=== PATIENT | female | born 1945 | race Caucasian/White ===

== ENCOUNTER 2018-12-22 11:12 | Inpatient (IN) | payer OTHER ==
[~2018-12-22] VITALS: Ht 154.9 cm; Wt 52.2 kg
== END 2019-01-12 08:45 | disposition home or self-care (01) | DRG 330 ==
LOC: O/R 01-04 06:10 → SURG 01-04 06:10 → SURH 01-04 07:00 → SURG 01-04 14:26
PROVIDERS: ADMIT Surgery
PROC: 07TC0ZZ Resection of Pelvis Lymphatic, Open Approach (ICD-10-PCS; 2019-01-04)
PROC: 0DBU0ZZ Excision of Omentum, Open Approach (ICD-10-PCS; 2019-01-04)
PROC: 0DJD8ZZ Inspection of Lower Intestinal Tract, Via Natural or Artificial Opening Endoscopic (ICD-10-PCS; 2019-01-04)
PROC: 0DTF0ZZ Resection of Right Large Intestine, Open Approach (ICD-10-PCS; principal; 2019-01-04 07:00)
DX: C18.0 Malignant neoplasm of cecum (principal); E87.0 Hyperosmolality and hypernatremia; R59.0 Localized enlarged lymph nodes; N99.0 Postprocedural (acute) (chronic) kidney failure